=== PATIENT | male | born 1990 | race Caucasian/White ===

== ENCOUNTER 2020-02-03 17:49 | Emergency (ER) | payer SELFPAY ==
[~2020-02-03] VITALS: Ht 172.7 cm; Wt 83.9 kg
[2020-02-03 17:49] VITALS: BP_SYST 148
--- NOTE | 2020-02-03 17:49 | NUR ---
BROUGHT IN BY JUANITA ALVARADO, PLACED IN HALLWAY BED AND TRIAGED. REPORT GIVEN TO ROLDAN
--- NOTE | 2020-02-03 17:52 | NUR ---
PT STATES THAT HE TAKES ONE PILL A DAY FOR HIS DIABETES AND ONE FOR HIS HTN, CAN NOT REMEMBER NAMES OR COLORS. PT STATES HE HAS NOT HAD ANY PILLS FOR OVER A MONTH. PT IS HERE FOR OK TO BOOK AND BLOOD DRAW.
--- NOTE | 2020-02-03 17:55 | NUR ---
ER Dr. Griffin at bedside examining patient.
--- NOTE | 2020-02-03 18:22 | NUR ---
Written and verbal consent obtained from patient for blood alcohol, name and verified by patient. Disinfected patient's skin with iodine that did not contain alcohol or other volatile organic compound. Collected the blood from the subject named by venipuncture, in the presence of Officer. Used a sterile, dry hypodermic needle and dry vacuum blood collection. Two dry vacuum blood collection was supplied by the officer named above. Withdrew a specimen of blood from right arm of the subject named above. Inverted both blood tubes several times to ensure that the preservative and anticoagulant were thoroughly mixed in the blood specimen. The labeled blood tubes were handed directly to the Officer named above. The blood tubes stopper remained in place while I had possession of the blood tubes. The Officer placed tubes into envelope and sealed it in my presence. Envelope initialed by myself and Officer named above. Patient tolerated well, bandage applied, and bleeding controlled.
--- NOTE | 2020-02-03 18:26 | NUR ---
Accucheck 110
[2020-02-03 18:28] VITALS: BP_SYST 148
--- NOTE | 2020-02-03 18:28 | NUR ---
Patient given written and verbal discharge instructions and verbalizes understanding. ER MD Griffin discussed with patient the results and treatment provided. Patient in stable condition. No Rx given. Patient educated on pain management and to follow up with PMD. Pain Scale 0. Opportunity for questions provided and answered. Medication side effect fact sheet provided.
== END 2020-02-03 18:28 ==
LOC: SED 17:49
DX: B37.0 Candidal stomatitis (principal); E11.9 Type 2 diabetes mellitus without complications; I10 Essential (primary) hypertension; Z87.2 Personal history of diseases of the skin and subcutaneous tissue
CPT/HCPCS: 99283